=== PATIENT | male | born 1970 | race African-American/Black ===

== ENCOUNTER 2023-11-11 09:22 | Emergency (ER) | payer OTHER ==
[~2023-11-11] VITALS: Ht 162.6 cm; Wt 68.0 kg
[2023-11-11 09:28] VITALS: BP 139/87; PULSE 115; RESP 20; TEMP 99.2; O2SAT 98
[2023-11-11 09:31] VITALS: O2SAT 98
[2023-11-11] MEDS: ACETAMINOPHEN 325 MG TAB PO ONE (10:03)
[2023-11-11 10:05] VITALS: RESP 17; TEMP 100.2
[2023-11-11 11:19] VITALS: BP 138/60; PULSE 103; O2SAT 94
== END 2023-11-11 12:12 | disposition home or self-care (01) ==
LOC: MED 09:22
DX: R51.9 Headache, unspecified (principal); R22.41 Localized swelling, mass and lump, right lower limb; R03.0 Elevated blood-pressure reading, without diagnosis of hypertension
CPT/HCPCS: 93971; 99284